=== PATIENT | female | born 1980 | race African-American/Black ===

== ENCOUNTER 2016-07-11 12:50 | Emergency (ER) | payer SELFPAY ==
--- NOTE | ~2016-07-11 | CT2 ---
[facility] A Service of [facility] RADIOLOGY TEXT RESULTS PATIENT: JAYME DAY LOCATION: [facility] : 84 UNIT #: [id number] AGE: [address]: Gian Berry DO SEX: F ORDER DR: [id number] [facility] [address] [place], [place] [address] [id number] MR#: [id number] Acc #: [id number] NAME: JAYME DAY : 1980 SEX: F STUDY DATE/TIME: 07/11/2016 13:20 UNIT: [facility] ROOM: STUDY DESCRIPTION: CT Abd and Pelv W Cont Attending Physician: Gian Berry D.O. Referring Physician: Dante Cervantes M.D. Ordering Physician: Gian Berry D.O. Primary Care Physician: Dante Cervantes M.D. MEDICAL IMAGING REPORT This report is preliminary unless electronic signature is present EXAM CT abdomen and pelvis with oral and IV contrast, 07/11/[address] abdomen and pelvis with oral and IV contrast and multiplanar reformats. This CT exam was performed with one or more of the following radiation dose reduction techniques: automatic exposure control, adjustment of mA and/or kV according to patient size, and iterative reconstruction. HISTORY Low back and pelvic pain for 24 hours. COMPARISON None FINDINGS The lung bases are normal. ABDOMEN: The liver, gallbladder, spleen, pancreas, kidneys and adrenal glands are normal and the aorta is normal in caliber. PELVIS: The appendix is normal. There is no pelvic mass, inflammatory change or abnormal fluid collection. There are bilateral physiologic ovarian cysts including 1 rim-enhancing in the right ovary, but there is no fluid or other acute abnormality. The bony structures are normal. IMPRESSION Normal negative CT abdomen and pelvis. Normal appendix, no renal or bowel or biliary obstruction. No acute abnormality. [facility] A Service of [facility] RADIOLOGY TEXT RESULTS PATIENT: JAYME DAY LOCATION: [facility] : 84 UNIT #: [id number] AGE: [address]: Gian Berry DO SEX: F ORDER DR: Dictated by... Nilton Kearns M.D. THIS IS AN ELECTRONICALLY VERIFIED REPORT Nilton Kearns M.D. at 07/11/2016 4:53 PM FISH/moisés TD: 07/11/2016 15:35 JOB #: [id number] MEDICAL IMAGING REPORT Page 1 of 1 COPY
[2016-07-11 12:24] LABS: URINE SOURCE CLEAN CATCH
[2016-07-11 12:28] LABS: BASOPHIL# 0.1 X10e3 (0-0.3); BASOPHIL% 0.9 % (0-2.5); EOSINOPHIL# 0.1 X10e3 (0-0.7); EOSINOPHIL% 1.6 % (0.0-7.0); HEMATOCRIT 38.4 % (35.0-45.0); HEMOGLOBIN 12.3 gm/dL (12.0-16.0); LYMPHOCYTE# 2.8 X10e3 (1.0-3.5); LYMPHOCYTE% 31.3 % (17.0-45.0); MEAN CELL VOLUME 88.2 FL (83-96); MEAN CORPUSCULAR HEMOGLOBIN 28.2 PG (28-34); MEAN CORPUSCULAR HGB CONC 31.9 g/dL (30-36); MONOCYTE# 0.9 X10e3 (0-1.0); MONOCYTE% 10.5 % (3.0-12.0); NEUTROPHIL% 55.7 % (40-75); PLATELET COUNT 179 X10e3 (140-420); RED BLOOD COUNT 4.36 X10e (3.90-5.30); WHITE BLOOD COUNT 8.9 X10e3 (4.0-10.5)
[2016-07-11 12:29] LABS: DIFF IND NO
[2016-07-11 12:29] LABS: URINE APPEARANCE CLEAR; URINE BILIRUBIN NEG (NEG); URINE BLOOD 1+ (NEG); URINE COLOR YELLOW; URINE GLUCOSE NEG (NEG); URINE KETONE NEG (NEG); URINE LEUKOCYTE ESTERASE NEG (NEG); URINE NITRATE NEG (NEG); URINE PROTEIN NEG (NEG); URINE SPECIFIC GRAVITY 1.011 (1.003-1.035); URINE UROBILINOGEN 0.2 MG/DL (NEG)
[2016-07-11 12:31] LABS: URINE BACTERIA AUWI NEG (NEGATIVE); URINE SQUAMOUS EPITHELIAL CELL NONE SEEN /[HPF]; UWBCS1 AUWI 0-2 (0-5)
[2016-07-11 12:35] LABS: CULTURE INDICATED? NO
[~2016-07-11 12:50] MED LIST: VICOPROFEN 200-1 TAB PO
[2016-07-11 12:55] LABS: ALBUMIN SERUM 3.7 g/dL (3.5-5.0); ALKALINE PHOSPHATASE 59 U/L (32-92); ALT (SGPT) 14 U/L (10-40); AST (SGOT) 16 U/L (10-42); BILIRUBIN,TOTAL 0.2 mg/dL (0.2-2.0); BLOOD UREA NITROGEN 9 mg/dL (9-23); CALCIUM SERUM 8.6 mg/dL (8.4-10.2); CARBON DIOXIDE 24 mmol/L (22-31); CHLORIDE 106 mmol/L (100-111); CREATININE SERUM 0.6 mg/dL (0.6-1.4); GLOM FILT RATE Estimated 137.8 mL/min (>60); GLUCOSE FASTING 84 mg/dL (70-110); LIPASE 20 U/L (22-51); POTASSIUM 3.2 mmol/L (3.5-5.1); PROTEIN TOTAL SERUM 7.6 g/dL (6.0-8.3); SODIUM 135 mmol/L (135-145)
[2016-07-11 13:00] LABS: BILIRUBIN, DIRECT <0.1 mg/dL (0.0-0.2); BILIRUBIN,INDIRECT 0.1 mg/dL (0.0-0.9)
[2016-07-15 08:11] LABS: CHLAMYDIA TRACH Not Detected (Not Detected); N GONOR Not Detected (Not Detected)
== END 2016-07-11 16:47 | disposition home or self-care (01) ==
LOC: CED 12:50
PROVIDERS: Emergency Medicine
DX: N73.9 Female pelvic inflammatory disease, unspecified (principal); I10 Essential (primary) hypertension; F17.210 Nicotine dependence, cigarettes, uncomplicated
CPT/HCPCS: 36415; 74177; 80048; 80076; 81003; 83690; 84703; 85025; 87491; 87591; 87808; 87905; 96361; 96372; 96374; 99284; J0696; J1885; Q9967